=== PATIENT | female | born 1965 | race Caucasian/White ===

== ENCOUNTER → 2018-06-20 | Outpatient (CLI) | payer BC ==
--- NOTE | 2018-06-20 14:15 | MM ---
Reason for exam: screening (asymptomatic). Last mammogram was performed 11 years and 1 month ago. MG 3D Screening Mammo W/Cad Bilateral CC and MLO view(s) were taken. Technologist: Clementine Rice RT (R)(M) Prior study comparison: May 31, 2007, bilateral screening mammogram w/CAD. There are scattered fibroglandular densities. 2.0 x 1.7cm spiculated mass upper inner left breast with internal pleomorphic calcifications is felt to reflect malignancy until proven otherwise. Additional density inner left CC view. ASSESSMENT: Incomplete: need additional imaging evaluation, BI-RAD 0 RECOMMENDATION: Special view mammogram and ultrasound of the left breast. [facility] will attempt to contact patient to return for supplemental views and ultrasound.
== END | disposition home or self-care (01) ==
LOC: RADMAMWWP 08:13
PROVIDERS: ATTEND Family Medicine
DX: Z12.31 Encounter for screening mammogram for malignant neoplasm of breast (principal)
CPT/HCPCS: 77063; 77067

== ENCOUNTER → 2018-07-04 | Outpatient (CLI) | payer BC ==
--- NOTE | 2018-07-04 12:18 | MM ---
Reason for exam: additional evaluation requested from abnormal screening. Last mammogram was performed less than 1 month ago. Physical Findings: Nurse Summary: 2cm nodule in the left breast at 10-11 o'clock (nurse kp). MG 3D Work Up W/Cad LT Spot compression CC, spot compression MLO, and LM view(s) were taken of the left breast. Prior study comparison: June 20, 2018, bilateral MG 3d screening mammo w/cad. May 31, 2007, bilateral screening mammogram w/CAD. Finding: There is a 20 mm spiculated mass in the upper inner quadrant, posterior middle position of the left breast. These results were verbally communicated with the patient and result sheet given to the patient on 07/04/18. ASSESSMENT: Incomplete: need additional imaging evaluation, BI-RAD 0 RECOMMENDATION: Ultrasound of the left breast.
--- NOTE | 2018-07-04 12:20 | USB ---
Reason for exam: additional evaluation requested from abnormal screening. US Breast Workup Limited LT Left limited breast ultrasound including focal area of concern, retroareolar and axilla demonstrates a 1.7 x 1.6 x 1.3cm irregular, solid, hypoechoic, vascular lesion at 10 o'clock. These results were verbally communicated with the patient and result sheet given to the patient on 07/04/18. ASSESSMENT: Highly suggestive of malignancy, BI-RAD 5 RECOMMENDATION: Ultrasound core biopsy of the left breast. Called Dr. Foster with mammographic findings and has scheduled an appointment for the patient for 07/08/18 at 8:[address] Smith. Biopsy scheduled for 07/10/18 at 1:00. PRELIMINARY REPORT CALLED AND FAXED TO DR. SMITH ON 07/04/18.
== END | disposition home or self-care (01) ==
LOC: RADMAMWWP 07:00
PROVIDERS: ATTEND Family Medicine
DX: R92.8 Other abnormal and inconclusive findings on diagnostic imaging of breast (principal)
CPT/HCPCS: 77061; 77065

== ENCOUNTER → 2018-07-08 | Outpatient (CLI) | payer BC ==
[2018-07-08 08:23] VITALS: BP 104/70; PULSE 56; RESP 16; TEMP 97.8; BMI 27.8
--- NOTE | 2018-07-08 08:56 | P.GSHP ---
History of Present Illness H&P Date: 07/08/18 The patient is a 53-year-old white female who approximately 2 weeks ago noticed some soreness in the upper inner quadrant area of the left breast. She subsequently underwent a radiograph and ultrasound of this area which revealed an approximately 1.7 x 1.6 cm irregular area for which biopsy was recommended. The patient has not had any other masses or lumps in her breasts. She denies any nipple discharge or changes. She does not give any history of trauma to the breast. She has had a recent 70 pound intentional weight loss. family history: 1. uncle: lung cancer, smoker hormonal history: menarche: 14 kenyatta-menopausal: lst period 2 weeks ago : 2, first at 30, breast fed: both BCP: about 20 years homones: none Past Surgical History: 1. gallbladder Medical History: 1.HTN 2. 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 Cardiovascular: Reports high blood pressure - Respiratory Respiratory: Denies cough, Denies 7 - Gastrointestinal Gastrointestinal: Denies abdominal pain, Denies diarrhea, Denies nausea, Denies vomiting - Genitourinary (Female) Genitourinary: Denies dysuria, Denies hematuria - Menstruation Comment: irregular - Musculoskeletal Comment: pain left arm Musculoskeletal: Reports myalgias - Integumentary Integumentary: Denies pruritus, Denies rash - Neurological Neurological: Denies numbness, Denies weakness - Psychiatric Psychiatric: Denies anxiety, Denies depression - Endocrine Comment: Intentional weight loss Endocrine: Reports weight change, Denies fatigue - Hematologic/Lymphatic Comment: none - Allergic/Immunologic Comment: Pencillin hives Past Medical History History of Any Multi-Drug Resistant Organisms: None Reported Past Surgical History: Cholecystectomy Smoking Status: Never smoker - Past Family History Father Family Medical History: Dementia Mother Family Medical History: Dementia Medications and Allergies Home Medications Medication Instructions Recorded Confirmed Type Nebivolol HCl [Bystolic] 2.5 mg PO DAILY 07/04/18 07/08/18 History Omeprazole [PriLOSEC] 20 mg PO PRN 07/04/18 History Allergies Allergy/AdvReac Type Severity Reaction Status Date / Time Penicillins AdvReac Unknown Unverified 07/08/18 08:13 Childhood Surgical - Exam Vital Signs Temp Pulse Resp BP Pulse Ox 97.8 F 56 L 16 104/70 100 07/08/18 08:14 07/08/18 08:14 07/08/18 08:14 07/08/18 08:14 07/08/18 08:14 - General BMI: 27.8 well developed, well nourished, no distress - Eyes normal ocular movement, no icteric - ENT no hearing loss, no congestion - Neck no masses, trachea midline - Respiratory normal respiratory effort, clear to auscultation - Cardiovascular Rhythm: regular Heart Sounds: normal: S1, S2 - Abdomen Abdomen: soft, non tender, no guarding, no rigid, no rebound - Neurologic no disoriented, no combative - Musculoskeletal normal gait, normal posture - Psychiatric oriented to time, oriented to person, oriented to place, speech is normal, memory intact breast exam: right: Fibrocystic changes Right axilla: No adenopathy of concern Left breast: Slightly larger than right breast, fibrocystic changes, patient has some increased nodularity in the upper inner quadrant of the breast approximately 2 cm in size this is not fixed to the chest wall Left axilla: No adenopathy of concern Results Mammogram and ultrasound results reviewed Assessment and Plan Assessment: Impression: 1. Highly suspicious mammogram and ultrasound of the left breast 2. Borderline hypertension Plan: 1. Ultrasound-guided core biopsy of left breast to be performed later this week 2. Patient and her wished discussion regarding possible treatment options if this is positive 3. Medical management of medical problems Surgical intervention including mastectomy versus lumpectomy and sentinel biopsy were discussed with the patient and her . They're going to follow up after the biopsy for further discussion. Cc: Dr. Foster
== END ==
LOC: WWCWWP 08:08
PROVIDERS: ATTEND Surgery
DX: Z53.9 Procedure and treatment not carried out, unspecified reason (principal)

== ENCOUNTER → 2018-07-10 | Day surgery (SDC) | payer BC ==
[2018-07-10 12:21] VITALS: BMI 27.6
--- NOTE | 2018-07-10 14:08 | USB ---
EXAMINATION TYPE: US biopsy breast VAD LT DATE OF EXAM: 07/10/2018 CLINICAL HISTORY: R92.8 Abn mammo. Abnormal ultrasound TECHNIQUE: Ultrasound guided core biopsy of left breast. COMPARISON: Ultrasound 07/04/2018, mammogram 07/04/2018 FINDINGS: The procedure of ultrasound guided core biopsy was explained to the patient. Benefits, alt ernatives, and risks were discussed. An informed consent was then obtained. Time out was performed. The patient was placed in supine positioning for imaging and for the procedure. The overlying skin w as prepped and draped in usual sterile fashion. Lidocaine buffered with bicarbonate was used as anes thetic into the skin and subcutaneous tissue up to area of concern in the left breast. A single ronald was made with surgical scalpel. Under ultrasound guidance, a 12-gauge vacuum assisted biopsy device was used to obtain 5 core samples . Following this, a biopsy clip was left in lesion. The patient tolerated the procedure well without any immediate complication. Discharge instructions were discussed with the patient. The patient follow-up with her surgeon for results. The patient was kept in the radiology department for short stay after the procedure and then discharged home in stabl e condition having tolerated procedure well. Postprocedure mammogram was obtained. Core marker is within the mammographic abnormality. IMPRESSION: 1. Successful ultrasound-guided core biopsy left breast lesion. Recommendations: 1. Recommendations are pending pathology results.
[2018-07-10 14:28] VITALS: BP 127/73; PULSE 44
[2018-07-10 14:29] VITALS: RESP 17; TEMP 97.7
== END ==
LOC: RADUSWWP 07-08 07:57
PROVIDERS: ATTEND Surgery
DX: C50.212 Malignant neoplasm of upper-inner quadrant of left female breast (principal); Z88.0 Allergy status to penicillin
CPT/HCPCS: 88305; 77065; 19083; A4648; J2001

== ENCOUNTER → 2018-07-18 | Outpatient (CLI) | payer BC ==
[2018-07-18 09:16] VITALS: BP 124/69; PULSE 50; RESP 12; TEMP 97.8; BMI 27.3
--- NOTE | 2018-07-18 10:21 | P.PN ---
Progress Note - Text Progress Note Date: 07/18/18 The patient is a 53 perimenopausal white female who is status post ultrasound- guided core biopsy of a 1.7 cm lesion in the left breast in the upper inner quadrant area. Pathology reveals a grade 2 invasive ductal carcinoma. The patient on physical examination had an area of fullness in the left breast she did not have any palpable axillary adenopathy. I discussed with the patient and her surgical options including lumpectomy/radiation therapy, versus mastectomy. The patient is a good surgical candidate for lumpectomy and wishes to forego mastectomy if at all possible. Additionally I have discussed with her sentinel node biopsy and possible axillary node dissection. She understands the risks and benefits of these options and wishes to proceed with surgical intervention. She understands that if the lumpectomy specimen has positive margin she may need further reexcision. She also understands that if the sentinel node on permanent section were to show macroscopic tumor she may need a completion axillary dissection. They understand risks and benefits including bleeding and infection reaction to the anesthetic. They have discussed a concern about receiving a second opinion and I have agreed with them that they should pursue this if they would like to. They however have stated that if I discussed the options with a colleague that they are satisfied that this will constitute a second opinion and do not want to delay any surgical intervention. Physical examination: Mild ecchymosis at site of ultrasound-guided core biopsy left breast Impression: 1. T1 N0 M0 grade 2 invasive ductal carcinoma of the left breast, this is ER+, DC+, and HER-2 negative. 2. Patient wishes for lumpectomy with sentinel node biopsy possible axillary node dissection she understands that this will be done using optical plastic surgical technique. Plan: 1. Left breast needle localization with sentinel node injection, lumpectomy and sentinel node biopsy, possible axillary node dissection. 2. Will notify Dr. Foster Cc: Dr. Foster
== END ==
LOC: WWCWWP 08:52
PROVIDERS: ATTEND Surgery
DX: Z53.9 Procedure and treatment not carried out, unspecified reason (principal)

== ENCOUNTER 2018-08-05 08:15 | Day surgery (SDC) | payer BC ==
[2018-07-30 11:40] VITALS: BMI 27.3
[~2018-08-05 08:15] MED LIST: DEXAMETHASONE SOD PHOSPHATE 10 MG/ML 1 ML VIAL IV ONE; HEPARIN SODIUM,PORCINE 5,000 UNIT/ML 1 ML VIAL SQ ONE; LACTATED RINGERS 1,000 ML IV SCH; LIDOCAINE 1% 20 ML VIAL (10MG/ML) FOR IV START INTRADERMA PRN; ONDANSETRON 4 MG/2 ML VIAL IVP ONE; Pre Op ABX Message 1 EACH MISC MISCELLANE ONE; SCOPOLAMINE 1.5MG/72HR PATCH TRANSDERM ONE
[2018-08-05] MEDS ORDERED: ALPRAZolam 0.5 MG TAB PO ONE (09:14)
[2018-08-05] MEDS ORDERED: LIDOCAINE 1% INJ 10MG/ML (20 ML MDV) SQ ONE (10:06)
[2018-08-05] MEDS ORDERED: SODIUM BICARB 4% 5 ML VIAL (0.48 MEQ/ML) MISCELLANE ONE (10:06)
--- NOTE | 2018-08-05 10:29 | P.HPADDEND ---
H&P Addendum H&P Addendum Date: 08/05/18 No changes to this history and physical. Spoke with radiology this morning about bracketing this lesion.
[2018-08-05] MEDS ORDERED: fentaNYL (PF) 50 MCG/ML 2 ML AMP ONE (12:22)
[2018-08-05] MEDS ORDERED: LIDOCAINE 1% INJ 10MG/ML (20 ML MDV) ONE (12:22)
[2018-08-05] MEDS ORDERED: SODIUM CHLORIDE 0.9% 50 ML with CLINDAMYCIN 600 MG IV ONE ×2 (12:22)
[2018-08-05] MEDS ORDERED: ePHEDrine SULFATE/0.9% NACL/PF 50 MG/5 ML SYRINGE IV ONE (12:22)
[2018-08-05] MEDS ORDERED: SUCCINYLCHOLINE CHLORIDE 100 MG/5 ML SYR IV ONE (12:22)
[2018-08-05] MEDS ORDERED: PROPOFOL 10 MG/ML 20 ML VIAL IV ONE (12:22)
[2018-08-05] MEDS ORDERED: MIDAZOLAM 2 MG/2 ML VIAL ONE (12:22)
--- NOTE | 2018-08-05 12:42 | NM ---
EXAMINATION TYPE: NM sentinel node injection DATE OF EXAM: 08/05/2018 COMPARISON: 07/10/2018 HISTORY: 53-year-old female biopsy-proven left breast cancer TECHNIQUE AND FINDINGS: The procedure of sentinel lymph node injection was explained to the patient. The benefits, alternatives, and risks were discussed. An informed consent was then obtained. Overlying skin is cleaned with sterile alcohol. Following this, 478 uCi Tc99m Tilmanocept was inject ed in the upper outer aspect of the left nipple intradermally. The patient tolerated the procedure well without any immediate complication. The patient was kept in the radiology department for short stay after the procedure and then taken to surgery for surgical p rocedure what is presumed intraoperative gamma probe will be used for sentinel lymph node detection. IMPRESSION: Left breast radiotracer injection for sentinel node localization as above.
[2018-08-05] MEDS ORDERED: BUPIVACAIN-EPI 0.25%-1:200,000 30 ML VIAL SQ ONE ×2 (13:15)
[2018-08-05 14:16] VITALS: TEMP 97.5
[2018-08-05] MEDS: HYDROmorphone 0.5 MG/0.5 ML SYRINGE IVP PRN ×4 (14:23→15:01)
[2018-08-05] MEDS ORDERED: LACTATED RINGERS 1,000 ML IV ONE (14:26)
[2018-08-05] MEDS ORDERED: HYDROcodone/APAP 5-325MG 1 EACH TAB PO PRN (14:41)
[2018-08-05] MEDS ORDERED: NALOXONE 0.4 MG/ML 1 ML VIAL IV PRN (14:41)
--- NOTE | 2018-08-05 14:46 | P.OP ---
Date of Procedure: 08/05/18 Procedure(s) Performed: PREOPERATIVE DIAGNOSIS: Left breast cancer POSTOPERATIVE DIAGNOSIS: Same PROCEDURE: Right Breast wire localization lumpectomy with sentinel lymph node biopsy SURGEON: Nga EBL: Minimal ANESTHESIA: General COMPLICATIONS: None OPERATIVE PROCEDURE: Patient was placed on the operating room table in the supine position. 2 mL of methylene blue was injected into the subareolar space. The breast was then massaged for 5 minutes. The left axilla was addressed at that time. The hot spot in the right axilla was identified. A small curvilinear incision was made using the scalpel. Dissection down through the subcutaneous tissues took place using electrocautery. Using the neoprobe I identified a total of 2 sentinel lymph nodes. These were both removed and sent to pathology for close examination. Frozen sections from these lymph nodes were negative for metastatic disease. No bleeding was seen. The subcutaneous tissues were closed using 3-0 Vicryl sutures. The skin was closed using 4-0 Monocryl sutures. The wire entrance sites were then addressed. These were present in the upper inner quadrant directed from medial to lateral. There were 2 wires a superior and inferior wire. A curvilinear incision was made adjacent to the areola from 9 to 12:00. The subcutaneous breast tissues were dissected using electrocautery. A lumpectomy then took place circumferentially around the palpable mass using the wires to help us determine our superior and inferior margins. The mass was close to the anterior skin margin. No additional subcutaneous tissues could be removed from the anterior margin. Once the specimen was removed and the specimen was examined I felt that the closest margin was likely the inferior and anterior margins. Again no additional tissue could be removed anteriorly. I did take a small sliver of tissue inferiorly and labeled this new inferior margin. The new margin was painted the appropriate green color. Clips were used to identify the lumpectomy space. The subcutaneous tissues were then closed using interrupted 3 -0 Vicryl sutures. The skin was closed using a running 4-0 Monocryl stitch. Skin glue was used at both incision sites. The initial lumpectomy specimen was then painted using the appropriate colors. DISPOSITION: Stable to recovery room
[2018-08-05 15:42] VITALS: RESP 18
[2018-08-05 15:59] VITALS: BP 118/77; PULSE 54
--- NOTE | 2018-08-05 18:58 | MM ---
EXAMINATION TYPE: MG pre op needle loc LT, MG surgical specimen LT DATE OF EXAM: 08/05/2018 COMPARISON: 07/09/2018 CLINICAL HISTORY: 53-year-old female biopsy-proven breast cancer on the left TECHNIQUE: Needle localization with wire placement and surgical excision of area of concern in the left breast. FINDINGS: The procedure of needle localization with wire placement and than surgical excision was explained to the patient. Benefits, alternatives, and risks were discussed. An informed consent was then obtained. The shortest pathway for procedure was chosen. The case was discussed with Dr. Sylvester who requested bracketing the lesion superiorly and inferiorly. Shortest pathway was a medial approach. The overlying skin was prepped and draped in usual sterile fashion. Lidocaine buffered with bicarbonate was used as anesthetic into the skin and subcutaneous tissue up to the level of area of concern. Two 7 cm Kopans needle were used to bracket the lesion via medial approach both superiorly and inferiorly. They were placed via medial approach under mammographic guidance. Subsequent 90 degrees mammogram show the needles to be in satisfactory position relative to the targeted area. At this point, and wires were placed and the needles were withdrawn. The wires were fixed to patient's skin. Images were marked for surgeon. The patient tolerated the procedure well without any immediate complication. The patient was kept in the radiology department for short stay after the procedure and then taken to surgery for surgical excision. Mass, biopsy clip, and 2 wires are identified in specimen mammogram. The patient was kept in hospital for short stay after the procedure and then discharged home in stable condition. IMPRESSION: Successful, uncomplicated needle bracketing with wire placement and surgical excision of biopsy-proven left breast cancer; full pathology results to follow. Pathology Results: Malignant A. SENTINEL LYMPH NODE #1, BIOPSY: Lymph node negative for metastasis. CK7 and PEDRO immunoperoxidase stains are confirmatory (controls appropriate). B. SENTINEL LYMPH NODE #2, BIOPSY: Lymph node negative for metastasis. CK7 and PEDRO immunoperoxidase stains are confirmatory (controls appropriate). C. BREAST, LEFT, LUMPECTOMY: Invasive ductal carcinoma and ductal carcinoma in situ, margins negative for malignancy. See Surgical Pathology Cancer Case Summary. D. BREAST, LEFT, NEW INFERIOR MARGIN, EXCISION: Benign breast with fibrocystic changes. Recommendation Surgical consult of the left breast. MATTIE
== END 2018-08-05 16:24 | disposition home or self-care (01) ==
LOC: OR 08:15
PROVIDERS: ATTEND Surgery
DX: C50.212 Malignant neoplasm of upper-inner quadrant of left female breast (principal); K21.9 Gastro-esophageal reflux disease without esophagitis; Z79.899 Other long term (current) drug therapy; Z88.0 Allergy status to penicillin
CPT/HCPCS: 19301; 38525; 81025; 88342; 88331; 88307; 88341; 76098; 19281; 38792; A9520; J2250; J1644; J1100; J2405; J2001; J3010; J0330; J2704; J1170

== ENCOUNTER 2018-10-06 16:30 | Emergency (ER) | payer BC ==
[2018-10-06 16:40] VITALS: BP 120/77; PULSE 69; RESP 18
[2018-10-06] MEDS ORDERED: LIDOCAINE/EPINEPHR/TETRACAINE 5 ML BOTTLE TOPICAL ONE (16:55)
[2018-10-06] MEDS ORDERED: SILVER NITRATE APPLICATOR 1 EACH STICK..EA. TOPICAL STA (16:55)
--- NOTE | 2018-10-06 17:19 | ED ---
General Adult HPI - General Chief complaint: ENT Stated complaint: Nose bleed Time Seen by Provider: 10/06/18 16:47 Source: patient, RN notes reviewed Mode of arrival: ambulatory Limitations: no limitations - History of Present Illness Initial comments: Patient 53-year-old female presenting to the emergency room today with a chief complaint of epistaxis that started at 10 AM. She states that she was putting on her makeup when it started. Patient does admit that she's had some rhinorrhea over the last few days. She states that she thought was same thing this morning went nose began to bleed but she noticed that it was blood. She doesn't that she is currently in the middle of chemo treatments for breast cancer. She did talk to her provider who advised coming to the emergency room to have blood work obtained. Patient states that the bleeding did stop prior to arrival. She denies any other complaints or symptoms at this time. Patient denies any recent fever, chills, shortness of breath, chest pain, back pain, abdominal pain, nausea or vomiting, headaches or visual changes, or any other complaints. - Related Data Home Medications Medication Instructions Recorded Confirmed Nebivolol HCl [Bystolic] 2.5 mg PO QAM 07/04/18 10/06/18 Omeprazole [PriLOSEC] 20 mg PO DAILY PRN 07/04/18 10/06/18 Allergies Allergy/AdvReac Type Severity Reaction Status Date / Time Penicillins Allergy Rash/Hives Verified 10/06/18 16:54 Review of Systems ROS Statement: Those systems with pertinent positive or pertinent negative responses have been documented in the HPI. ROS Other: All systems not noted in ROS Statement are negative. Past Medical History Past Medical History: Cancer, GERD/Reflux, Osteoarthritis (OA) Additional Past Medical History / Comment(s): Recent left breast cancer diagnosis. Irregular heartbeat. Resting HR runs around 48. Cholestrol borderline high. History of Any Multi-Drug Resistant Organisms: None Reported Past Surgical History: Breast Surgery, Cholecystectomy Additional Past Surgical History / Comment(s): lumpectomy Past Anesthesia/Blood Transfusion Reactions: No Reported Reaction Past Psychological History: No Psychological Hx Reported Smoking Status: Never smoker Past Alcohol Use History: Occasional Past Drug Use History: None Reported - Past Family History Father Family Medical History: Dementia Mother Family Medical History: Dementia General Exam - General Exam Comments Initial Comments: General: The patient is awake and alert, in no distress, and does not appear acutely ill. Ears, nose, mouth and throat: There are moist mucous membranes and no oral lesions. Appears to be a prominent vessel to the right medial anterior aspect of her nose. There is no active bleeding. Posterior pharynx clear. Neck: The neck is supple Cardiovascular: There is a regular rate and rhythm. No murmur, rub or gallop is appreciated. Respiratory: Lungs are clear to auscultation, respirations are non-labored, breath sounds are equal. No wheezes, stridor, rales, or rhonchi. Musculoskeletal: Normal ROM, no tenderness. Neurological: A&O x 3. CN II-XII intact, There are no obvious motor or sensory deficits. Coordination appears grossly intact. Speech is normal. Skin: Skin is warm and dry and no rashes or lesions are noted. Psychiatric: Cooperative, appropriate mood & affect, normal judgment. Limitations: no limitations Course Vital Signs 10/06/18 16:36 Temperature 97.9 F Pulse Rate 69 Respiratory 18 Rate Blood Pressure 120/77 O2 Sat by Pulse 98 Oximetry Procedures - Procedures Initial comment: Patient did have a lidocaine, epinephrine, tetracaine mixture placed on a cotton ball and placed into the right nostril for approximately 20 minutes. This was removed. There is no active bleeding seen. There is a small superficial vessel on the anterior medial aspect this was cauterized with silver nitrate. Patient tolerated the procedure well. Patient has been continued to be monitored ears have rebleeding. Medical Decision Making - Medical Decision Making Patient's right nostril was anesthetized and cauterized with silver nitrate stick. She tolerated well. She's had no rebleeding. Patient's labs have been reviewed and does show an elevated white count of 26. No old labs to compare to. Currently being treated for breast cancer. Patient has no signs of infection. She denies any symptoms for UTI. She denies any fevers. Vitals are stable at triage. Patient's lung sounds are clear. Has had no cough or congestion. Patient will be discharged home she is advised to follow-up over the next 2 days to have repeat blood work. Advised to return if symptoms increase or worsen or for any other concerns. - Lab Data Result diagrams: 10/06/18 17:31 10/06/18 17:31 Lab Results 10/06/18 10/06/18 10/06/18 Range/Units 17:31 17:31 17:31 WBC 26.9 H (3.8-10.6) k/uL RBC 4.12 (3.80-5.40) m/uL Hgb 12.2 (11.4-16.0) gm/dL Hct 39.3 (34.0-46.0) % MCV 95.4 (80.0-100.0) fL MCH 29.7 (25.0-35.0) pg MCHC 31.1 (31.0-37.0) g/dL RDW 12.7 (11.5-15.5) % Plt Count 168 (150-450) k/uL Neutrophils % (Manual) 73 % Band Neutrophils % 6 % Lymphocytes % (Manual) 14 % Monocytes % (Manual) 3 % Metamyelocytes % 3 % Myelocytes % 2 % Neutrophils # (Manual) 21.20 H (1.3-7.7) k/uL Lymphocytes # (Manual) 3.77 (1.0-4.8) k/uL Monocytes # (Manual) 0.81 (0-1.0) k/uL Metamyelocytes # (Man) 0.81 H (0) k/uL Myelocytes # (Manual) 0.54 H (0) k/uL Nucleated RBCs 0 (0-0) /100 WBC Manual Slide Review Performed Toxic Granulation Present PT 9.7 (9.0-12.0) sec INR 0.9 (<1.2) APTT 23.0 (22.0-30.0) sec Sodium 141 (137-145) mmol/L Potassium 3.9 (3.5-5.1) mmol/L Chloride 103 (98-107) mmol/L Carbon Dioxide 29 (22-30) mmol/L Anion Gap 9 mmol/L BUN 11 (7-17) mg/dL Creatinine 0.69 (0.52-1.04) mg/dL Est GFR (CKD-EPI)AfAm >90 (>60 ml/min/1.73 sqM) Est GFR (CKD-EPI)NonAf >90 (>60 ml/min/1.73 sqM) Glucose 88 (74-99) mg/dL Calcium 8.9 (8.4-10.2) mg/dL Disposition Clinical Impression: Epistaxis, Elevated WBC count Disposition: HOME SELF-CARE Condition: Good Instructions: Nosebleed (ED) Additional Instructions: Please follow-up with ENT if symptoms persist with nose bleeding. Bleeding reoccurs use nasal clamp for 20 minutes. If bleeding uncontrolled return here to the emergency room. Please follow-up with oncologist/family doctor and have repeat labs performed. Please return to emergency room if the symptoms increase or worsen or for any other concerns. Is patient prescribed a controlled substance at d/c from ED?: No Referrals: Mohit Foster MD [Primary Care Provider] - 1-2 days Alexys Palacios MD [STAFF PHYSICIAN] - 1-2 days Time of Disposition: 18:26
[2018-10-06 17:44] LABS: HCT 39.3 % (34.0-46.0); HGB 12.2 gm/dL (11.4-16.0); MCH 29.7 pg (25.0-35.0); MCHC 31.1 g/dL (31.0-37.0); MCV 95.4 fL (80.0-100.0); Mean Platelet Volume 8.6; Platelet Count 168 k/uL (150-450); RBC 4.12 m/uL (3.80-5.40); RDW 12.7 % (11.5-15.5); WBC 26.9 k/uL (3.8-10.6)
[2018-10-06 17:52] LABS: Anion Gap 9 mmol/L; Blood Urea Nitrogen 11 mg/dL (7-17); Calcium 8.9 mg/dL (8.4-10.2); Carbon Dioxide 29 mmol/L (22-30); Chloride 103 mmol/L (98-107); Glucose 88 mg/dL (74-99); Potassium 3.9 mmol/L (3.5-5.1); Sodium 141 mmol/L (137-145)
[2018-10-06 17:55] LABS: INR 0.9 (<1.2); Prothrombin Time 9.7 sec (9.0-12.0)
[2018-10-06 18:05] LABS: Band Neutrophils % 6 %; Lymphocytes # (M) 3.77 k/uL (1.0-4.8); Metamyelocytes # (M) 0.81 k/uL (0); Metamyelocytes % 3 %; Monocytes # (M) 0.81 k/uL (0-1.0); Myelocytes # (M) 0.54 k/uL (0); Myelocytes % 2 %; Neutrophils % (M) 73 %; Nucleated Red Blood Cells 0 /100 WBC (0-0); Total Cells Counted 200; Toxic Granulation Present
[2018-10-06 18:36] VITALS: TEMP 98
== END 2018-10-06 18:35 | disposition home or self-care (01) ==
LOC: EC 16:30
DX: R04.0 Epistaxis (principal); D72.829 Elevated white blood cell count, unspecified; J34.89 Other specified disorders of nose and nasal sinuses; C50.912 Malignant neoplasm of unspecified site of left female breast; Z92.21 Personal history of antineoplastic chemotherapy; Z88.0 Allergy status to penicillin; Z79.899 Other long term (current) drug therapy; Z86.79 Personal history of other diseases of the circulatory system; Z98.890 Other specified postprocedural states
CPT/HCPCS: 30901; 36415; 80048; 85025; 85610; 85730; 99283

== ENCOUNTER → 2018-12-13 | Outpatient (CLI) | payer BC | END | disposition home or self-care (01) | LOC: LABWHC1 14:51 | PROVIDERS: ATTEND Radiology Radiation Oncology | DX: Z32.00 Encounter for pregnancy test, result unknown (principal) | CPT/HCPCS: 81025 ==

== ENCOUNTER → 2018-12-23 | Outpatient (CLI) | payer BC ==
--- NOTE | 2018-12-23 11:11 | BD ---
EXAMINATION TYPE: Axial Bone Density DATE OF EXAM: 12/23/2018 COMPARISON: NONE CLINICAL HISTORY: Breast cancer. Postmenopausal female. Osteoporosis screening. Height: 5 FT 7 IN Weight: 167 FRAX RISK QUESTIONS: Family History (Parent hip fracture): YES RISK FACTORS HISTORY OF: Active: YES Postmenopausal woman: CHEMO INDUCED 2017 MEDICATIONS: Additional Medications: BYSTOLIC, Additional History: BREAST CANCER 2018 JUST FINISHED CHEMO GOING TO START RADIATION IN ONE WEEK EXAM MEASUREMENTS: Bone mineral densitometry was performed using the [employer] System. Bone mineral density as measured about the Lumbar spine is: ----- L1-L4(G/cm2): 1.190 T Score Values are as follows: ----- L2: 0.1 ----- L3: 0.1 ----- L4: -0.1 ----- L1-L4: 0.1 BASELINE Bone mineral density about the R hip (g/cm2): 0.932 Bone mineral density about the L hip (g/cm2): 0.990 T Score values are as follows: -----R Neck: -0.8 -----L Neck: -0.3 -----R Total: -0.2 -----L Total: 0.1 BASELINE IMPRESSION: Normal (Values between +1 and -1 indicate normal bone mass). Consider repeating this study in 5 year s or sooner if there is some new clinical indication. NOTE: T-SCORE=SD OF THE YOUNG ADULT MEAN.
== END | disposition home or self-care (01) ==
LOC: RADBDWWP 08:36
PROVIDERS: ATTEND Internal Medicine Hematology & Oncology
DX: C50.212 Malignant neoplasm of upper-inner quadrant of left female breast (principal); N95.1 Menopausal and female climacteric states; Z79.890 Hormone replacement therapy; Z88.0 Allergy status to penicillin
CPT/HCPCS: 77080

== ENCOUNTER → 2019-06-10 | Outpatient (CLI) | payer SELFPAY ==
--- NOTE | 2019-06-10 10:22 | CT ---
EXAMINATION TYPE: CT heart w calcium score DATE OF EXAM: 06/10/2019 COMPARISON: None HISTORY: Screening for cardiovascular disorder. 213.9 CT DLP: 44.80 mGycm Automated exposure control for dose reduction was used. CT CALCIUM SCORING Coronary calcium is a marker for plaque (fatty deposits) in a blood vessel or atherosclerosis (harden ing of the arteries). The presence and amount of calcium detected in a coronary artery by the CT sca n, indicates the presence and amount of atherosclerotic plaque. These calcium deposits appear years before the development of heart disease symptoms such as chest pain and shortness of breath. A calcium score is computed for each of the coronary arteries based upon the volume and density of th e calcium deposits. This can be referred to as your calcified plaque burden. It does not correspond directly to the percentage of narrowing in the artery but does correlate with the severity of the un derlying coronary atherosclerosis. PROCEDURE TECHNIQUE - Prospective Gating was used. Slice thickness: 3mm. Density threshold (HU): 130, Pixel threshold: 3, Algorithm: discrete. RESULTS Region: LM Calcium Score ([place]): 0 Volume (mm3): 0 Mass (g): 0 Region: RCA Calcium Score ([place]): 0 Volume (mm3): 0 Mass (g): 0 Region: LAD Calcium Score ([place]): 0 Volume (mm3): 0 Mass (g): 0 Region: CX Calcium Score ([place]): 0 Volume (mm3): 0 Mass (g): 0 Region: PDA Calcium Score ([place]): 0 Volume (mm3): 0 Mass (g): 0 Total: Calcium Score ([place]): 0 Volume (mm3): 0 Mass (g): 0 TOTAL CALCIUM SCORE: 0 IMPRESSION: Calcium Score: 0 Implication: No identifiable plaque. Risk of Coronary Artery Disease: Very low No significant coronary artery calcification is evident. Incidental note of postprocedural changes i n the left breast CALCIUM SCORE IMPLICATION RISK OF C ORONARY ARTERY DISEASE 0 No identifiable plaque Very low, generally less than 5% 1-10 Minimal identifiable plaque Very unlikely, less than 10% 11-100 Definite, at least mild atherosclerotic plaque Mild or m inimal coronary narrowings likely 101-400 Definite, at least moderate atherosclerotic plaque Mild coronary ar melissa disease highly likely, significant narrowing possible 401 or Higher Extensive atherosclerotic plaque High lik elihood of at least one significant coronary narrowing
== END | disposition home or self-care (01) ==
LOC: RADCTMAIN 08:14
PROVIDERS: ATTEND Family Medicine
DX: I25.10 Atherosclerotic heart disease of native coronary artery without angina pectoris (principal)
CPT/HCPCS: 75571

== ENCOUNTER → 2019-06-30 | Outpatient (CLI) | payer BC ==
--- NOTE | 2019-06-30 09:24 | MM ---
Reason for exam: additional evaluation requested from prior study. Last mammogram was performed 1 year ago. History: Patient has history of breast cancer at age 53. Malignant MG pre op needle loc LT of the left breast, August 05, 2018. Lumpectomy of the left breast, August 05, 2018. Malignant US biopsy breast VAD LT of the left breast, July 10, 2018. Physical Findings: Nurse did not find any significant physical abnormalities on exam. MG 3D Diag Mammo W/Cad KANDACE Bilateral CC and MLO view(s) were taken. Prior study comparison: July 10, 2018, left breast MG diagnostic mammo LT wo CAD. July 04, 2018, left breast MG 3d work up w/cad LT. The breast tissue is heterogeneously dense. This may lower the sensitivity of mammography. Finding: There is skin thickening and architectural distortion in the inner quadrant, posterior position of the left breast. There is a chronic nodularity in the right breast. There is no discrete abnormality. These results were verbally communicated with the patient and result sheet given to the patient on 06/30/19. ASSESSMENT: Benign, BI-RAD 2 RECOMMENDATION: Follow-up diagnostic mammogram of both breasts in 1 year.
== END | disposition home or self-care (01) ==
LOC: RADMAMWWP 07:53
PROVIDERS: ATTEND Radiology Radiation Oncology
DX: C50.212 Malignant neoplasm of upper-inner quadrant of left female breast (principal); Z17.0 Estrogen receptor positive status [ER+]; Z92.21 Personal history of antineoplastic chemotherapy; Z92.3 Personal history of irradiation
CPT/HCPCS: 77062; 77066

== ENCOUNTER → 2020-07-02 | Outpatient (CLI) | payer BC ==
--- NOTE | 2020-07-02 13:23 | MM ---
Reason for exam: additional evaluation requested from prior study. Last mammogram was performed 1 year ago. History: Patient is postmenopausal and has history of breast cancer at age 53. Malignant MG pre op needle loc LT of the left breast, August 05, 2018. Lumpectomy of the left breast, August 05, 2018. Malignant US biopsy breast VAD LT of the left breast, July 10, 2018. Taking antineoplastic beginning at age 53. Physical Findings: Nurse did not find any significant physical abnormalities on exam. MG 3D Diag Mammo W/Cad KANDACE Bilateral CC and MLO view(s) were taken. Prior study comparison: June 30, 2019, bilateral MG 3d diag mammo w/cad KANDACE. July 10, 2018, left breast MG diagnostic mammo LT wo CAD. There are scattered fibroglandular densities. No significant new findings when compared with previous films. These results were verbally communicated with the patient and result sheet given to the patient on 07/02/20. ASSESSMENT: Benign, BI-RAD 2 RECOMMENDATION: Follow-up diagnostic mammogram of both breasts in 1 year.
== END | disposition home or self-care (01) ==
LOC: RADMAMWWP 11:00
PROVIDERS: ATTEND Radiology Radiation Oncology
DX: C50.212 Malignant neoplasm of upper-inner quadrant of left female breast (principal); Z92.3 Personal history of irradiation; Z92.21 Personal history of antineoplastic chemotherapy; Z17.0 Estrogen receptor positive status [ER+]
CPT/HCPCS: 77062; 77066

== ENCOUNTER → 2021-07-08 | Outpatient (CLI) | payer BC ==
--- NOTE | 2021-07-08 12:27 | MM ---
Reason for exam: additional evaluation requested from prior study. Last mammogram was performed 1 year ago. History: Patient is postmenopausal and has history of breast cancer at age 53. Family history of breast cancer in maternal grandmother. Malignant MG pre op needle loc LT of the left breast, August 05, 2018. Lumpectomy of the left breast, August 05, 2018. Malignant US biopsy breast VAD LT of the left breast, July 10, 2018. Took hormonal contraceptives for 20 years. Taking antineoplastic beginning at age 53. Physical Findings: Nurse did not find any significant physical abnormalities on exam. MG 3D Diag Mammo W/Cad KANDACE Bilateral CC and MLO view(s) were taken. Prior study comparison: July 02, 2020, bilateral MG 3d diag mammo w/cad KANDACE. June 30, 2019, bilateral MG 3d diag mammo w/cad KANDACE. There are scattered fibroglandular densities. There is chronic nodularity in the right breast, stable. Post surgery change left breast. These results were verbally communicated with the patient and result sheet given to the patient on 07/08/21. ASSESSMENT: Benign, BI-RAD 2 RECOMMENDATION: Follow-up diagnostic mammogram of both breasts in 1 year.
== END | disposition home or self-care (01) ==
LOC: RADMAMWWP 11:03
PROVIDERS: ATTEND Radiology Radiation Oncology
DX: N63.10 Unspecified lump in the right breast, unspecified quadrant (principal); N64.89 Other specified disorders of breast; Z78.0 Asymptomatic menopausal state; Z85.3 Personal history of malignant neoplasm of breast; Z80.3 Family history of malignant neoplasm of breast; Z79.3 Long term (current) use of hormonal contraceptives
CPT/HCPCS: 77062; 77066

== ENCOUNTER → 2021-07-26 | Outpatient (CLI) | payer BC ==
--- NOTE | 2021-07-26 14:17 | BD ---
EXAMINATION TYPE: Axial Bone Density DATE OF EXAM: 07/26/2021 COMPARISON: 12/23/2018 CLINICAL HISTORY: Postmenopausal female. Height: 67.2 IN Weight: 197 LBS FRAX RISK QUESTIONS: Family History (Parent hip fracture): YES FATHER RISK FACTORS HISTORY OF: Active: YES Postmenopausal woman: AGE 53 Take estrogen and/or progesterone medications: NOT NOW How long: TOOK CONTROL FOR 15 YEARS MEDICATIONS: Additional Medications: LETROZOLE, Additional History: BREAST CANCER WITH CHEMO AND RADIATION EXAM MEASUREMENTS: Bone mineral densitometry was performed using the [employer] System. Bone mineral density as measured about the Lumbar spine is: ----- L1-L4(G/cm2): 1.024 T Score Values are as follows: ----- L2: -1.7 ----- L3: -0.9 ----- L4: -1.4 ----- L1-L4: -1.3 Bone mineral density has: Decreased -13.7% since study of: 12/23/2018 Bone mineral density about the R hip (g/cm2): 0.797 Bone mineral density about the L hip (g/cm2): 0.862 T Score values are as follows: -----R Neck: -1.7 -----L Neck: -1.3 -----R Total: -1.4 -----L Total: -1.0 Bone mineral density has: Decreased -14.3% since study of: 12/23/2018 IMPRESSION: Osteopenia (T Score between -2.5 and -1) remains present. There remains slightly increased risk of fracture and the patient may be considered for treatment. Re-Screen 2-5 years. NOTE: T-SCORE=SD OF THE YOUNG ADULT MEAN.
== END | disposition home or self-care (01) ==
LOC: RADBDWWP 07:57
PROVIDERS: ATTEND Internal Medicine Hematology & Oncology
DX: M85.89 Other specified disorders of bone density and structure, multiple sites (principal); Z78.0 Asymptomatic menopausal state
CPT/HCPCS: 77080

== ENCOUNTER → 2021-11-09 | Outpatient (CLI) | payer BC ==
--- NOTE | 2021-11-09 15:19 | CONS ---
CONSULTATION DATE OF SERVICE: 11/09/2021 56-year-old lady has been evaluated in Sleep Center for possible obstructive sleep apnea-hypopnea syndrome. HISTORY OF PRESENT ILLNESS SLEEP-WAKE EVALUATION: SLEEP SCHEDULE: Patient's usual sleep schedule on weekdays from 10 p.m. to 6:15 am; on weekends from 10 p.m. until 7 a.m. FALLING ASLEEP: Sometimes she has problems with falling asleep, has TV set in bedroom. DURING SLEEP: She usually sleeps on the side position. According to her , she snores very loudly and she wakes up from sleep 3 times with episodes of nocturia. No history of hypnagogic hallucinations, sleep paralysis or cataplexy. Positive history of dry mouth at night and grinding teeth. DURING THE DAY/SLEEP WAKE EVALUATION: In the morning, the patient wakes up tired. Worries about her sleep, has problems with memory. [place] Sleepiness Scale is 6. Usually she does not take any naps. PAST MEDICAL HISTORY: Positive for left breast CA. PAST SURGICAL HISTORY: Surgery for left breast CA, radiation therapy and chemotherapy, cholecystectomy. MEDICATIONS: Letrozole 2.5 mg once a day. Estradiol 0.01% as needed. SOCIAL HISTORY: Negative for smoking, alcohol consumption rarely. FAMILY HISTORY: Heart problems, snoring, diabetes, Lili's thyroiditis. REVIEW OF SYSTEMS: Multiple awakenings from sleep, snoring, episodes of tiredness and sleepiness during the day. PHYSICAL EXAMINATION: GENERAL: lady without distress. BP 125/80, HR 63, RR 15, height 5 feet 7-3/4 inches, weight 199.0, body mass index 30.5, temperature 97.3, oxygen saturation at room air 99%. OROPHARYNX: Extremely low position of soft palate, Mallampati 4. NECK 14-1/2 inches in circumference. Neck: Supple, no JVD. Thyroid is not palpable. LUNGS: Clear to percussion and to auscultation. Good air exchange. No wheezing or rhonchi. HEART: S1, S2 regular. No murmurs, gallops, or rubs. ABDOMEN: Soft and nontender. Bowel sounds are present. No organomegaly appreciated. EXTREMITIES: No clubbing or cyanosis. GRINDING WHEEL FACER: Awake, alert, and oriented X3. Cranial nerves 2 to 7 intact. There is no fasciculation or atrophy. noted. No focal deficits observed. IMPRESSION: 1. Loud snoring, multiple awakenings from sleep with nocturia, extremely low position of soft palate, Mallampati 4. Obstructive sleep apnea-hypopnea syndrome. 2. Mild obesity, body mass index 30.5. 3. History of left breast carcinoma, status post surgical treatment, chemotherapy and radiation therapy. 4. Status post cholecystectomy. PLAN: 1. Home sleep apnea test for evaluation of patient breathing during sleep. 2. CPAP/BiPAP titration if sleep study confirms obstructive sleep apnea-hypopnea syndrome. 3. Preferable position during sleep on the side. 4. No driving if patient feels any sleepiness. 5. I will see patient for follow up visit to explain results of testing and following plan. Thank you very much for referring this patient for consultation. Sincerely, Jorge L Cornelius MD, PhD, FAASM Diplomat of [employer] Sleep Medicine Board of [employer] [facility] [employer] [place] [facility] [place] MMODL / FABN: [id number] /
== END ==
LOC: SLEEP 14:10
PROVIDERS: ATTEND Internal Medicine
DX: G47.33 Obstructive sleep apnea (adult) (pediatric) (principal); E66.9 Obesity, unspecified; Z68.30 Body mass index [BMI] 30.0-30.9, adult; Z90.49 Acquired absence of other specified parts of digestive tract; Z85.3 Personal history of malignant neoplasm of breast; Z79.811 Long term (current) use of aromatase inhibitors; Z88.0 Allergy status to penicillin
CPT/HCPCS: 99211

== ENCOUNTER → 2022-02-15 | Outpatient (CLI) | payer BC ==
--- NOTE | 2022-02-15 19:52 | SFUN ---
SLEEP CENTER FOLLOW UP NOTE DATE OF SERVICE: 02/15/2022 This 56-year-old lady has been followed in Sleep Center for treatment of obstructive sleep apnea-hypopnea syndrome. Recently she had a home sleep apnea test and after that she received her CPAP unit. I discussed the results of her sleep study with the patient in detail. Sleep study indicated obstructive sleep apnea-hypopnea syndrome in moderate range. Then the patient was started on treatment with AutoPAP and she is able to use the equipment every night. I checked the reading from her CPAP unit. Usage is 100% of the time for more than 4 hours, average 8 hours 24 minutes. Range of the pressure is 5 to 14, average pressure 11.4. Leak is 2.4, 95%, which is good. Apnea-hypopnea index is only 2.3, which is normal. [place] Sleepiness Scale today is 8, which is normal. MEDICATIONS: 1. Letrozole 2.5 mg once a day. 2. 0.01% as needed. PHYSICAL EXAMINATION: GENERAL: Pleasant patient in no distress. VITAL SIGNS: BP 121/81, HR 56, RR 16, weight 205 pounds, temperature 96.6, oxygen saturation at room air 100%. HEENT: PERRLA, EOMI, evaluation of oropharynx showed tongue protrudes midline. Extremely low position of soft palate; Mallampati IV. NECK: Supple, no JVD. Thyroid is not palpable. LUNGS: Clear to percussion and to auscultation. Good air exchange. No wheezing or rhonchi. HEART: S1, S2 regular. No murmurs, gallops, or rubs. ABDOMEN: Soft and nontender. Bowel sounds are present. No organomegaly appreciated. EXTREMITIES: No clubbing or cyanosis. HELPER MARBLE FINISHER: Awake, alert, and oriented X3. Cranial nerves 2 to 7 intact. There is no fasciculation or atrophy. noted. No focal deficits observed. IMPRESSION: 1. Moderate obstructive sleep apnea-hypopnea syndrome by results of home sleep apnea test, which may underestimate severity of abnormalities. The patient demonstrated 100% compliance with treatment. Normal respiration on CPAP. Benefitting from treatment. 2. Mild obesity. 3. History of left breast carcinoma, status post surgical treatment, chemotherapy and radiation therapy. 4. Status post cholecystectomy. PLAN: 1. Patient will continue to use PAP equipment every night for the whole night. 2. Sleep hygiene with regular time in bed for at least 7-1/2 to 8 hours. 3. Precautions related to driving. No driving if feeling sleepiness. 4. I will maintain all necessary prescription for PAP supplies including mask, tube, filters. 5. Watching weight. 6. Follow-up visit in 6 months or earlier if patient has any problems. Thank you very much for allowing me to participate in the management of your patient. Sincerely, Jorge L Cornelius MD, PhD, FAASM Diplomat of [employer] Sleep Medicine Board of [employer] [facility] [employer] [facility] [place] [facility] [place] MMODL / IJN: [id number] /
== END ==
LOC: SLEEP 13:15
PROVIDERS: ATTEND Internal Medicine
DX: G47.33 Obstructive sleep apnea (adult) (pediatric) (principal); Z99.89 Dependence on other enabling machines and devices; E66.9 Obesity, unspecified; Z85.3 Personal history of malignant neoplasm of breast; Z98.890 Other specified postprocedural states; Z90.49 Acquired absence of other specified parts of digestive tract; Z92.21 Personal history of antineoplastic chemotherapy; Z92.3 Personal history of irradiation; Z88.0 Allergy status to penicillin

== ENCOUNTER → 2022-09-06 | Outpatient (CLI) | payer BC ==
--- NOTE | 2022-09-06 14:35 | P.PN ---
Subjective DATE: 09/06/2022 FOLLOW UP VISIT. Patient with obstructive sleep apnea hypopnea syndrome return to sleep center for follow-up visit. Information from previous visit have been reviewed. Patient is using PAP equipment every night for the whole night, getting PAP supplies in time. The patient does not have significant problems with the mask, PAP unit and humidification. [place] sleepiness scale is 8, which is normal. I checked information from PAP unit. PAP unit pressure 5-14, average 13.3 cm H2O. Usage is 100 % for more then 4 hours, average 8 hours per night. Leak is 8.4 l/m, which is in acceptable range. Apnea Hypopnea Index is 3.3, which is normal. MEDICATIONS:1. Letrozole 2.5 mg once a day 2. Diclofenac During physical exam: GENERAL: A pleasant patient without any distress. VITAL SIGNS: BP 119/80, HR 61, RR 16 , weight 211.2, temperature 96.6, oxygen saturation at room air 96 % . HEENT: PERRLA, EOMI.low position of soft palate, Mallapati 4 . NECK: Supple. No JVD. LUNGS: Clear to percussion and to auscultation. Good air exchange. No wheezing or rhonchi. HEART: S1, S2 regular. ABDOMEN: Soft and nontender. Slightly obese EXTREMITIES: No clubbing or cyanosis. SUBCONTRACTS MANAGER: Awake, alert, and oriented x3. No focal deficit. Impressions: 1. Obstructive sleep apnea-hypopnea syndrome. Patient demonstrated great compliance with treatment, benefiting from treatment. 2. History of left breast cancer, status post surgical treatment, radiation therapy and chemotherapy. 3. []Mild obesity 4. []Status post cholecystectomy Plan: 1. Continue using PAP equipment every night for the whole night. 2. To change air filter at least 1-2 times per month. 3. PAP unit should stay lower then position of the head. 4. Advised patient to remove all remaining water from humidifier canister daily and make it dry after each usage. Refill canister with fresh distilled water before each usage. 5. Sleep hygiene with regular time in bed for at least 8 hours. 6. Precautions related to driving. No driving if feel any sleepiness. 7. I will maintain prescription for PAP supplies including mask, tube, filters. 8. Follow up visit in 6 months or earlier if patient has any problems. 9. Watching and losing weight. Thank you very much for allowing me to participate in the management of your patient. Jorge L Cornelius MD, PhD, FAASM. Diplomat of [place] [employer], Sleep Medicine Board by [place] [place] [facility] [place]
== END ==
LOC: SLEEP 13:39
PROVIDERS: ATTEND Internal Medicine
DX: G47.33 Obstructive sleep apnea (adult) (pediatric) (principal); Z99.89 Dependence on other enabling machines and devices; E66.8 Other obesity; Z98.890 Other specified postprocedural states; Z92.3 Personal history of irradiation; Z85.3 Personal history of malignant neoplasm of breast; Z88.0 Allergy status to penicillin; Z92.21 Personal history of antineoplastic chemotherapy
CPT/HCPCS: 99212

== ENCOUNTER → 2023-03-14 | Outpatient (CLI) | payer BC ==
--- NOTE | 2023-03-14 13:47 | P.PN ---
Subjective DATE: 03/14/2023 FOLLOW UP VISIT. Patient with obstructive sleep apnea hypopnea syndrome return to sleep center for follow-up visit. Information from previous visit have been reviewed. Patient is using PAP equipment every night for the whole night, getting PAP supplies in time. The patient does not have significant problems with the mask, PAP unit and humidification. [place] sleepiness scale is 7, which is normal. I checked information from PAP unit. PAP unit pressure 5-14, average 13.6 cm H2O. Usage is 100 % for more then 4 hours, average 7.5 hours per night. Leak is 8.8 l/m, which is in acceptable range. Apnea Hypopnea Index is 3.1, which is normal. No snoring. MEDICATIONS:1. Letrozole 2.5 mg once a day 2. Diclofenac as needed During physical exam: GENERAL: A pleasant patient without any distress. VITAL SIGNS: BP 108/74, HR 60, RR 14 , weight 207.2, temperature 98.2, oxygen saturation at room air 99 % . HEENT: PERRLA, EOMI.low position of soft palate, Mallapati 4 . NECK: Supple. No JVD. LUNGS: Clear to percussion and to auscultation. Good air exchange. No wheezing or rhonchi. HEART: S1, S2 regular. ABDOMEN: Soft and nontender.[] EXTREMITIES: No clubbing or cyanosis. TEST LEAD APPLICATION TESTING: Awake, alert, and oriented x3. No focal deficit. Impressions: 1. Obstructive sleep apnea-hypopnea syndrome. Patient demonstrated great compliance with treatment, benefiting from treatment. 2. Mild obesity, patient lost 4 pounds comparing with previous visit. 3. History of left breast cancer, status post surgical treatment, radiation therapy and chemotherapy. 4. Status post cholecystectomy. Plan: 1. Continue using PAP equipment every night for the whole night. 2. To change air filter at least 1-2 times per month. 3. PAP unit should stay lower then position of the head. 4. Advised patient to remove all remaining water from humidifier canister daily and make it dry after each usage. Refill canister with fresh distilled water before each usage. 5. Sleep hygiene with regular time in bed for at least 8 hours. 6. Precautions related to driving. No driving if feel any sleepiness. 7. I will maintain prescription for PAP supplies including mask, tube, filters. 8. Watching weight. 9. Follow up visit in 6 months or earlier if patient has any problems. Thank you very much for allowing me to participate in the management of your patient. Jorge L Cornelius MD, PhD, FAASM. Diplomat of [place], Sleep Medicine Board by [employer] [facility] [place]
== END ==
LOC: SLEEP 13:16
PROVIDERS: ATTEND Internal Medicine
DX: G47.33 Obstructive sleep apnea (adult) (pediatric) (principal); E66.9 Obesity, unspecified; Z85.3 Personal history of malignant neoplasm of breast; Z99.89 Dependence on other enabling machines and devices; Z90.49 Acquired absence of other specified parts of digestive tract; Z92.3 Personal history of irradiation; Z88.0 Allergy status to penicillin
CPT/HCPCS: 99212

== ENCOUNTER → 2023-09-19 | Outpatient (CLI) | payer BC ==
--- NOTE | 2023-09-19 15:02 | P.PN ---
Subjective DATE: 09/19/2023 FOLLOW UP VISIT. Patient with obstructive sleep apnea hypopnea syndrome return to sleep center for follow-up visit. Information from previous visit have been reviewed. Patient is using PAP equipment every night for the whole night, getting PAP supplies in time. The patient does not have significant problems with the mask, PAP unit and humidification. [place] sleepiness scale is 5. I checked information from PAP unit. PAP unit pressure 5-14, average 13.4 cm H2O. Usage is 100 % for more then 4 hours, average 7.75 hours per night. Leak is 7.6 l/m, which is in acceptable range. Apnea Hypopnea Index is 3.3, which is normal. MEDICATIONS:1.. Letrazole During physical exam: GENERAL: A pleasant patient without any distress. VITAL SIGNS: BP 133/77, HR 62, RR 16, weight 215.8, temperature 98.3, oxygen saturation at room air 98 % . HEENT: PERRLA, EOMI.low position of soft palate, Mallapati 4 . NECK: Supple. No JVD. LUNGS: Clear to percussion and to auscultation. Good air exchange. No wheezing or rhonchi. HEART: S1, S2 regular. ABDOMEN: Soft and nontender.[] EXTREMITIES: No clubbing or cyanosis. SUPERVISOR TREE TRIMMING: Awake, alert, and oriented x3. No focal deficit. Impressions: 1. Obstructive sleep apnea-hypopnea syndrome. Patient demonstrated great compliance with treatment, benefiting from treatment. 2. Mild obesity, patient increased to wait on 8 pounds comparing with previous visit. 3. History of left breast cancer, status post surgical treatment, radiation therapy and chemotherapy. 4. Status post cholecystectomy. Plan: 1. Continue using PAP equipment every night for the whole night. 2. To change air filter at least 1-2 times per month. 3. PAP unit should stay lower then position of the head. 4. Advised patient to remove all remaining water from humidifier canister daily and make it dry after each usage. Refill canister with fresh distilled water before each usage. 5. Sleep hygiene with regular time in bed for at least 8 hours. 6. Precautions related to driving. No driving if feel any sleepiness. 7. I will maintain prescription for PAP supplies including mask, tube, filters. 8. Follow up visit in 6 months or earlier if patient has any problems. 9. Watching and losing weight. Thank you very much for allowing me to participate in the management of your patient. Jorge L Cornelius MD, PhD, FAASM. Diplomat of [place] [employer] Medicine, Sleep Medicine Board by [place] [employer] Reinforcing [employer] Work[facility] [place] [place]
== END ==
LOC: 3 N SLEEP 13:30
PROVIDERS: ATTEND Internal Medicine
DX: G47.33 Obstructive sleep apnea (adult) (pediatric) (principal); E66.9 Obesity, unspecified; Z90.49 Acquired absence of other specified parts of digestive tract; Z85.3 Personal history of malignant neoplasm of breast; Z92.3 Personal history of irradiation; Z99.89 Dependence on other enabling machines and devices; Z88.0 Allergy status to penicillin
CPT/HCPCS: 99212

== ENCOUNTER → 2024-04-30 | Outpatient (CLI) | payer BC ==
[2024-04-30 14:12] VITALS: BP 107/69; PULSE 74; RESP 16; TEMP 98.2
--- NOTE | 2024-04-30 14:48 | P.PROGSL ---
Subjective DATE: 04/30/2024 FOLLOW UP VISIT. Patient with obstructive sleep apnea hypopnea syndrome return to sleep center for follow-up visit. Information from previous visit have been reviewed. Patient is using PAP equipment every night for the whole night, getting PAP supplies in time. The patient does not have significant problems with the mask, PAP unit and humidification. [place] sleepiness scale is 5, which is normal. I checked information from PAP unit. PAP unit pressure 5-14, average 13.1 cm H2O. Usage is 100% for more then 4 hours, average 7.2 hours per night. Leak is 9 l/m, which is in acceptable range. Apnea Hypopnea Index is 2.2, which is normal. MEDICATIONS: Please see below During physical exam: GENERAL: A pleasant patient without any distress. VITAL please see below, weight 227 pounds. HEENT: PERRLA, EOMI.low position of soft palate, [place]ati 4 . NECK: Supple. No JVD. LUNGS: Clear to percussion and to auscultation. Good air exchange. No wheezing or rhonchi. HEART: S1, S2 regular. ABDOMEN: Soft and nontender. Slightly obese EXTREMITIES: No clubbing or cyanosis. HARDBOARD GRINDER: Awake, alert, and oriented x3. No focal deficit. Impressions: 1. Obstructive sleep apnea-hypopnea syndrome. Patient demonstrated great compliance with treatment, benefiting from treatment. 2. Obesity, BMI 35.2, patient increased weight on 12 pounds comparing with previous visit. 3. History of left breast cancer, status post surgical treatment, radiation and chemotherapy. 4. Status post cholecystectomy. Plan: 1. Continue using PAP equipment every night for the whole night. I gave patient for trial AirFit F40 fullface mask which goes under the nose to prevent any irritation on the bridge of the nose. 2. To change air filter at least 1-2 times per month. 3. PAP unit should stay lower then position of the head. 4. Advised patient to remove all remaining water from humidifier canister daily and make it dry after each usage. Refill canister with fresh distilled water before each usage. 5. Sleep hygiene with regular time in bed for at least 8 hours. 6. Precautions related to driving. No driving if feel any sleepiness. 7. I will maintain prescription for PAP supplies including mask, tube, filters. 8.Watching and losing weight. 9. Follow up visit in 6 months or earlier if patient has any problems. Thank you very much for allowing me to participate in the management of your patient. Jorge L Cornelius MD, PhD, FAASM. Diplomat of [place] [employer], Sleep Medicine Board by [place] [employer] [facility] [place] Objective - Vital Signs Vital Signs: Vital Signs Temp 98.2 F 04/30/24 14:08 Pulse 74 04/30/24 14:08 Resp 16 04/30/24 14:08 BP 107/69 04/30/24 14:08 Pulse Ox 98 04/30/24 14:08 FiO2 Intake & Output 04/29/24 04/30/24 04/30/24 18:59 06:59 18:59 Weight 102.965 kg Home Medications: Home Medications Medication Instructions Recorded Confirmed Type Letrozole [Femara] 2.5 mg PO DAILY 04/30/24 04/30/24 History
== END ==
LOC: 3 N SLEEP 13:29
PROVIDERS: ATTEND Internal Medicine
DX: G47.33 Obstructive sleep apnea (adult) (pediatric) (principal); E66.9 Obesity, unspecified; Z85.3 Personal history of malignant neoplasm of breast; Z90.49 Acquired absence of other specified parts of digestive tract; Z68.35 Body mass index [BMI] 35.0-35.9, adult; Z99.89 Dependence on other enabling machines and devices; Z92.3 Personal history of irradiation; Z92.21 Personal history of antineoplastic chemotherapy; Z88.0 Allergy status to penicillin
CPT/HCPCS: 99212

== ENCOUNTER → 2024-11-18 | Outpatient (CLI) | payer BC ==
--- NOTE | 2024-11-18 10:34 | MM ---
Reason for Exam: Screening (asymptomatic). Last mammogram was performed 1 year(s) and 3 month(s) ago. Patient History: Menarche at age 15. First Full-Term at age 30. Postmenopausal. Breast cancer, left, age 53. Previous chest radiation therapy at age 53. Previous chemotherapy at age 53. Patient used Hormonal Contraceptives for 20 years. 08/05/2018, Lumpectomy on the Left side. 08/05/2018, Malignant Core Biopsy on the left side. 07/10/2018, Malignant Core Biopsy on the left side. 2018, Chemotherapy. 2018, Radiation Therapy on the left side. Maternal grandmother had breast cancer. Prior Study Comparison: 07/08/2021 Bilateral Diagnostic Mammogram, [facility]. 07/31/2022 Bilateral MG 3D screening mammo w/cad, [facility]. 08/01/2023 Bilateral MG 3D screening mammo w/cad, [facility]. Tissue Density: The breasts are almost entirely fatty. Findings: Analyzed By CAD. Left breast surgical clips. Right breast: There is no suspicious group of microcalcifications or new suspicious mass. Left breast: There is no suspicious group of microcalcifications or new suspicious mass. Overall Assessment: Negative, BI-RAD 1 Management: Screening Mammogram of both breasts in [address] [facility] will attempt to contact patient to return for supplemental views and ultrasound if indicated. Patient should continue monthly self-breast exams. A clinical breast exam by your physician is recommended on an annual basis. This exam should not preclude additional follow-up of suspicious palpable abnormalities. Note on Nikkie scores and lifetime risk: 1. A Nikkie score greater than 3% is considered moderate risk. If this is the case, consider specialist referral to assess eligibility for a risk reducing agent. 2. If overall lifetime risk for the development of breast cancer is 20% or higher, the patient may qualify for future screening with alternating mammogram and breast MRI. [facility], , 11/18/2024 10:28 AM. Electronically signed and approved by: Masoud Solorzano DO
== END | disposition home or self-care (01) ==
LOC: RADMAMWWP 09:28
PROVIDERS: ATTEND Internal Medicine Hematology & Oncology
DX: Z12.31 Encounter for screening mammogram for malignant neoplasm of breast (principal); R92.313 Mammographic fatty tissue density, bilateral breasts; Z78.0 Asymptomatic menopausal state; Z80.3 Family history of malignant neoplasm of breast; Z92.3 Personal history of irradiation
CPT/HCPCS: 77063; 77067

== ENCOUNTER → 2024-12-24 | Outpatient (CLI) | payer BC ==
[2024-12-24 16:28] VITALS: BP 119/78; PULSE 71; RESP 12; TEMP 98.1
--- NOTE | 2024-12-24 16:45 | P.PROGSL ---
Subjective DATE: 12/24/2024 FOLLOW UP VISIT. Patient with obstructive sleep apnea hypopnea syndrome return to sleep center for follow-up visit. Information from previous visit have been reviewed. Patient is using PAP equipment every night for the whole night, getting PAP supplies in time. The patient does not have significant problems with the mask, PAP unit and humidification. [place] sleepiness scale is 5, which is normal. I checked information from PAP unit. PAP unit pressure 5-14, average 13.6 cm H2O. Usage is 100% for more then 4 hours, average 6.9 hours per night. Leak is 11 l/m, which is in acceptable range. Apnea Hypopnea Index is 2.8, which is normal. MEDICATIONS have been reviewed, please see below. During physical exam: GENERAL: A pleasant patient without any distress. VITAL SIGNS: Please see below, weight is 223 lbs. HEENT: PERRLA, EOMI.low position of soft palate, Mallapati 4 . NECK: Supple. No JVD. LUNGS: Clear to percussion and to auscultation. Good air exchange. No wheezing or rhonchi. HEART: S1, S2 regular. ABDOMEN: Soft and nontender. Slightly obese EXTREMITIES: No clubbing or cyanosis. DIETARY DIRECTOR: Awake, alert, and oriented x3. No focal deficit. Impressions: 1. Obstructive sleep apnea-hypopnea syndrome. Patient demonstrated great compliance with treatment, benefiting from treatment. 2. Obesity, BMI 35.9. 3. History of left breast cancer, status post surgical treatment, hemotherapy and radiation therapy. 4. Status post cholecystectomy. Plan: 1. Continue using PAP equipment every night for the whole night. 2. Sleep hygiene with regular time in bed for at least 7.5-8 hours 3. PAP unit should stay lower then position of the head. 4. Advised patient to remove all remaining water from humidifier canister daily and make it dry after each usage. Refill canister with fresh distilled water before each usage. 5. Watching weight. 6. Precautions related to driving. No driving if feel any sleepiness. 7. I will maintain prescription for PAP supplies including mask, tube, filters. 8. Follow up visit in 8 months or earlier if patient has any problems. Thank you very much for allowing me to participate in the management of your patient. Jorge L Cornelius MD, PhD, FAASM. Diplomat of [place] [employer], Sleep Medicine Board by [place] [employer] Chief [employer] [place] Objective - Vital Signs Vital Signs: Vital Signs Temp 98.1 F 12/24/24 16:26 Pulse 71 12/24/24 16:26 Resp 12 12/24/24 16:26 BP 119/78 12/24/24 16:26 Pulse Ox 99 12/24/24 16:26 FiO2 Intake & Output 12/23/24 12/24/24 12/24/24 18:59 06:59 18:59 Weight 101.151 kg Home Medications: Home Medications Medication Instructions Recorded Confirmed Type Letrozole [Femara] 2.5 mg PO DAILY 04/30/24 12/24/24 History Semaglutide [Ozempic] 1 mg SQ WEEKLY 12/24/24 12/24/24 History
== END ==
LOC: 3 N SLEEP 16:10
PROVIDERS: ATTEND Internal Medicine
DX: G47.33 Obstructive sleep apnea (adult) (pediatric) (principal); E66.9 Obesity, unspecified; Z68.35 Body mass index [BMI] 35.0-35.9, adult; Z85.3 Personal history of malignant neoplasm of breast; Z90.49 Acquired absence of other specified parts of digestive tract; Z88.0 Allergy status to penicillin
CPT/HCPCS: 99212